=== PATIENT | female | born 1955 | race Asian ===

== ENCOUNTER 2022-10-11 09:22 | Outpatient (CLI) | payer OTHER | END 2022-10-11 09:23 | disposition home or self-care (01) | LOC: CSHULT 09:22 | PROVIDERS: ATTEND Internal Medicine | DX: E05.90 Thyrotoxicosis, unspecified without thyrotoxic crisis or storm (principal); E04.2 Nontoxic multinodular goiter | CPT/HCPCS: 76536 ==